=== PATIENT | male | born 1960 | race Caucasian/White ===

== ENCOUNTER 2018-11-11 08:49 | Emergency (ER) | payer BC ==
--- NOTE | 2018-11-11 08:54 | EDM.PDOC ---
ED HPI GENERAL MEDICAL PROBLEM - General Stated Complaint: CHEST PAIN HEADACHE Time Seen by Provider: 11/11/18 08:53 Source of Information: Reports: Patient - History of Present Illness INITIAL COMMENTS - FREE TEXT/NARRATIVE: HISTORY AND PHYSICAL: History of present illness: [Patient presents with 8 out of 10 chest pain radiating to left arm and neck, pain was associated with diaphoresis and shortness of breath pain began while at rest in his pickup and lasted for more than 30 minutes No fever nausea vomiting chills sweats Pain relieved with nitroglycerin Review of systems: As per history of present illness and below otherwise all systems reviewed and negative. Past medical history: As per history of present illness and as reviewed below otherwise noncontributory. Surgical history: As per history of present illness and as reviewed below otherwise noncontributory. Social history: No reported history of drug or alcohol abuse. Family history: As per history of present illness and as reviewed below otherwise noncontributory. Physical exam: HEENT: Atraumatic, normocephalic, pupils reactive, negative for conjunctival pallor or scleral icterus, mucous membranes moist, throat clear, neck supple, nontender, trachea midline. Lungs: Clear to auscultation, breath sounds equal bilaterally, chest nontender. Heart: S1S2, regular, negative for clicks, rubs, or JVD. Abdomen: Soft, nondistended, nontender. Negative for masses or hepatosplenomegaly. Negative for costovertebral tenderness. Pelvis: Stable nontender. Genitourinary: Deferred. Rectal: Deferred. Extremities: Atraumatic, negative for cords or calf pain. Neurovascular unremarkable. Neuro: Awake, alert, oriented. Cranial nerves II through XII unremarkable. Cerebellum unremarkable. Motor and sensory unremarkable throughout. Exam nonfocal. Diagnostics: [CBC CMP UA: Lipase EKG Chest 1 view] Therapeutics: Normal saline Nitroglycerin Aspirin 324 mg Lovenox 1.5 mg/kg ] Impression: Acute coronary syndrome Definitive disposition and diagnosis as appropriate pending reevaluation and review of above. mid sternal radiates to L jaw Pain Score (Numeric/FACES): 6 - Related Data Allergies Allergy/AdvReac Type Severity Reaction Status Date / Time No Known Allergies Allergy Verified 11/11/18 10:12 Home Meds: Home Meds Allopurinol [Zyloprim] 1 tab PO ASDIRECTED PRN 11/11/18 [History] ED ROS GENERAL - Review of Systems Review Of Systems: See Below ED EXAM, GENERAL - Physical Exam Exam: See Below Course - Vital Signs Last Recorded V/S: Last Vital Signs Temp 98.2 F 11/11/18 08:50 Pulse 18 L 11/11/18 08:50 Resp 18 11/11/18 08:50 BP 137/98 H 11/11/18 09:21 Pulse Ox 98 11/11/18 08:50 - Orders/Labs/Meds Orders: Active Orders 24 hr Category Date Time Status EKG Documentation Completion [RC] STAT Care 11/11/18 08:52 Active UA RFX JAS AND CULT IF INDIC [URIN] Stat Lab 11/11/18 08:52 Ordered Sodium Chloride 0.9% [Normal Saline] 1,000 ml Med 11/11/18 09:00 Active IV STAT Medication Orders Sodium Chloride (Normal Saline) 1,000 mls @ 125 mls/hr IV STAT EMILY Last Admin: 11/11/18 09:10 Dose: 125 mls/hr Labs: Laboratory Tests 11/11/18 11/11/18 Range/Units 08:56 08:56 WBC 10.22 (4.0-11.0) K/uL RBC 5.26 (4.50-5.90) M/uL Hgb 16.5 (13.0-17.0) g/dL Hct 47.6 (38.0-50.0) % MCV 90.5 (80.0-98.0) fL MCH 31.4 (27.0-32.0) pg MCHC 34.7 (31.0-37.0) g/dL RDW Std Deviation 41.5 (28.0-62.0) fl RDW Coeff of Kervin 13 (11.0-15.0) % Plt Count 264 (150-400) K/uL MPV 9.30 (7.40-12.00) fL Neut % (Auto) 41.9 L (48.0-80.0) % Lymph % (Auto) 40.8 H (16.0-40.0) % [place] % (Auto) 12.0 (0.0-15.0) % Eos % (Auto) 4.9 (0.0-7.0) % Baso % (Auto) 0.4 (0.0-1.5) % Neut # (Auto) 4.3 (1.4-5.7) K/uL Lymph # (Auto) 4.2 H (0.6-2.4) K/uL [place] # (Auto) 1.2 H (0.0-0.8) K/uL Eos # (Auto) 0.5 (0.0-0.7) K/uL Baso # (Auto) 0.0 (0.0-0.1) K/uL Nucleated RBC % 0.0 /100WBC Nucleated RBCs # 0 K/uL Sodium 138 (136-148) mmol/L Potassium 3.8 (3.5-5.1) mmol/L Chloride 103 (98-107) mmol/L Carbon Dioxide 28.1 (21.0-32.0) mmol/L BUN 8 (7.0-18.0) mg/dL Creatinine 0.9 (0.8-1.3) mg/dL Est Cr Clr Drug Dosing TNP Estimated GFR (MDRD) > 60.0 ml/min Glucose 109 H (74-106) mg/dL Calcium 9.3 (8.5-10.1) mg/dL Total Bilirubin 0.5 (0.2-1.0) mg/dL AST 28 (15-37) IU/L ALT 38 (14-63) IU/L Alkaline Phosphatase 76 (46-116) U/L Troponin I 0.188 H* (0.000-0.056) ng/mL Total Protein 7.9 (6.4-8.2) g/dL Albumin 4.3 (3.4-5.0) g/dL Globulin 3.6 (2.6-4.0) g/dL Albumin/Globulin Ratio 1.2 (0.9-1.6) Lipase 169 (73-393) U/L Meds: Medications Generic Name Dose Route Start Last Admin Trade Name Freq PRN Reason Stop Dose Admin Sodium Chloride 1,000 mls @ 125 mls/hr 11/11/18 09:00 11/11/18 09:10 Normal Saline IV 125 mls/hr STAT EMILY Administration Discontinued Medications Generic Name Dose Route Start Last Admin Trade Name Freq PRN Reason Stop Dose Admin Aspirin 324 mg 11/11/18 09:06 11/11/18 09:10 Aspirin PO 11/11/18 09:07 324 mg ONETIME ONE Administration Aspirin Confirm 11/11/18 09:07 11/11/18 09:11 Aspirin Administered 11/11/18 09:08 Not Given Dose 324 mg .ROUTE .STK-MED ONE Enoxaparin Sodium 150 mg 11/11/18 10:08 Lovenox SUBCUT 11/11/18 10:09 ONETIME ONE Nitroglycerin 0.4 mg 11/11/18 08:52 11/11/18 09:21 Nitrostat SL 0.4 mg Q5M PRN Administration Chest Pain Departure - Departure Time of Disposition: 10:14 Disposition: Home, Self-Care 01 Condition: Good Clinical Impression: Acute coronary syndrome - Discharge Information - My Orders Last 24 Hours: My Active Orders 11/11/18 08:52 EKG Documentation Completion [RC] STAT UA RFX JAS AND CULT IF INDIC [URIN] Stat 11/11/18 09:00 Sodium Chloride 0.9% [Normal Saline] 1,000 ml IV STAT - Assessment/Plan Last 24 Hours: My Active Orders 11/11/18 08:52 EKG Documentation Completion [RC] STAT UA RFX JAS AND CULT IF INDIC [URIN] Stat 11/11/18 09:00 Sodium Chloride 0.9% [Normal Saline] 1,000 ml IV STAT
[2018-11-11] MEDS ORDERED: Sodium Chloride 0.9% 1,000 ML IV SCH (09:00)
[2018-11-11] MEDS ORDERED: Aspirin 81 MG Tab.Chew PO ONE (09:06)
[2018-11-11] MEDS ORDERED: Aspirin 81 MG Tab.Chew ONE (09:07)
[2018-11-11] MEDS: Nitroglycerin 0.4 MG Tab.SL SL PRN ×3 (09:10→09:21)
[2018-11-11 09:44] LABS: CHLORIDE,CL 103 mmol/L (98-107); SODIUM,NA 138 mmol/L (136-148)
--- NOTE | 2018-11-11 09:50 | CR ---
EXAMINATION: Portable chest radiograph. HISTORY: Shortness of breath. FINDINGS: The trachea is midline. The cardiomediastinal silhouette is within normal limits. No pulmonary infiltrates, effusions or pneumothorax. Osseous structures appear unremarkable. IMPRESSION: No acute cardiopulmonary process.
[2018-11-11] MEDS ORDERED: Enoxaparin 100 MG/1 ML Syringe SUBCUT ONE (10:08)
[2018-11-11] MEDS ORDERED: Metoprolol Tartrate 5 MG in Sodium Chloride 0.9% 50 ML IV ONE (10:13)
[2018-11-11] MEDS ORDERED: Metoprolol Tartrate 5 MG/5 ML SDV ONE (10:15)
[2018-11-11] MEDS ORDERED: Metoprolol Tartrate 5 MG/5 ML SDV IVPUSH ONE (10:25)
== END 2018-11-11 10:54 | disposition home or self-care (01) ==
LOC: MW.ED 08:49
DX: I24.9 Acute ischemic heart disease, unspecified (principal)
CPT/HCPCS: 36415; 71045; 80053; 81003; 83690; 84484; 85025; 93005; 96372; 96374; 99285; A9270; J1650; J3490; J7040

== ENCOUNTER 2023-10-26 12:05 | Emergency (ER) | payer BC ==
[2023-10-26] MEDS ORDERED: Sodium Chloride 0.9% 20 ML SDV IV PRN (12:14)
[2023-10-26] MEDS: Sodium Chloride 0.9% 10 ML Syringe FLUSH PRN (12:35)
[2023-10-26] MEDS: Sodium Chloride 0.9% 1,000 ML IV ONE (12:35)
[2023-10-26] MEDS: Sodium Chloride 0.9% 2.5 ML Syringe FLUSH PRN (12:35)
[2023-10-26 12:47] LABS: BASOPHILS ABSOLUTE AUTO 0.04 K/uL (0.00-0.20); BASOPHILS PERCENT AUTO 0.6 % (0.0-1.0); EOSINOPHILS ABSOLUTE AUTO 0.24 K/uL (0.00-0.45); EOSINOPHILS PERCENT AUTO 3.7 % (0.0-6.0); HEMATOCRIT 44.3 % (42.0-52.0); HEMOGLOBIN 15.7 g/dL (14.0-18.0); IMMATURE GRAN ABSOLUTE AUTO 0.02 K/uL (0.00-0.05); IMMATURE GRAN PERCENT AUTO 0.3 % (0.0-0.4); LYMPHOCYTES ABSOLUTE AUTO 1.65 K/uL (1.00-4.80); LYMPHOCYTES PERCENT AUTO 25.2 % (24.0-44.0); MEAN CORPUSCULAR HEMOGLOBIN 31.4 pg (28.0-32.0); MEAN CORPUSCULAR HGB CONC 35.4 g/dL (32.0-36.0); MEAN CORPUSCULAR VOLUME 88.6 fL (83.0-99.0); MEAN PLATELET VOLUME 8.5 fL (9.4-12.4); MONOCYTES ABSOLUTE AUTO 0.55 K/uL (0.00-0.80); MONOCYTES PERCENT AUTO 8.4 % (0.0-8.0); NEUTROPHILS ABSOLUTE AUTO 4.06 K/uL (1.80-7.70); NEUTROPHILS PERCENT AUTO 61.8 % (41.0-71.0); PLATELET COUNT,PLT 276 K/uL (150-400); WHITE BLOOD CELL COUNT,WBC 6.56 K/uL (3.9-11.3)
[2023-10-26 13:00] LABS: INR 0.97 (0.86-1.11)
[2023-10-26 13:24] LABS: A/G RATIO 1.1 (0.9-1.6); BILIRUBIN TOTAL 0.8 mg/dL (0.2-1.0); CALCIUM 9.1 mg/dL (8.5-10.1); CARBON DIOXIDE,CO2 26.6 mmol/L (21.0-32.0); EST CRCL DRUG DOSING (CG) 82.62 mL/min; MAGNESIUM 2.1 mg/dL (1.8-2.4); POTASSIUM,K 4.2 mmol/L (3.5-5.1); PROTEIN TOTAL,TP 7.5 g/dL (6.4-8.2); TSH ULTRASENSITIVE 1.62 uIU/mL (0.36-3.74)
== END 2023-10-26 16:37 | disposition home or self-care (01) ==
LOC: MW.ED 12:05
DX: R20.2 Paresthesia of skin (principal); I25.2 Old myocardial infarction; Z75.8 Other problems related to medical facilities and other health care; Z79.899 Other long term (current) drug therapy
CPT/HCPCS: 36415; 70450; 70551; 71045; 80053; 83735; 84443; 84484; 85025; 85610; 93005; 96360; 96361; 99285; J3490; J7030; 93010; 99283

== ENCOUNTER 2024-04-01 08:07 | Day surgery (SDC) | payer BC ==
[2024-04-01] MEDS: Lactated Ringers 1,000 ML IV SCH (08:44)
[2024-04-01] MEDS ORDERED: propofoL 500 MG/50 ML 50 ML ONE (09:03)
[2024-04-01] MEDS ORDERED: Ondansetron 4 MG/2 ML SDV ONE (09:05)
== END 2024-04-01 10:55 | disposition home or self-care (01) ==
LOC: MW.SDS 08:07
PROVIDERS: ATTEND Surgery
DX: Z12.11 Encounter for screening for malignant neoplasm of colon (principal); I10 Essential (primary) hypertension; K21.9 Gastro-esophageal reflux disease without esophagitis; I25.10 Atherosclerotic heart disease of native coronary artery without angina pectoris; Z79.899 Other long term (current) drug therapy
CPT/HCPCS: 45378; J2704; J7120; J2405